=== PATIENT | female | born 1970 | race Caucasian/White ===

== ENCOUNTER 2017-10-12 13:52 | Emergency (ER) | payer OTHER ==
[~2017-10-12] VITALS: Ht 160 cm; Wt 56.7 kg
[~2017-10-12 13:52] MED LIST: ACET325; ALBU90OI INH; CIPR500 PO; CLIN300 PO; CYCL10 PO; Cleocin HCl300 MG PO; DOXY100 PO; ERYT500 PO; Esgic Tablet1 EACH PO; FAMO20 PO; HERBAL MEDS; HYDACE5 PO; IBUP200; LORA1 PO; NAPR500 PO; Norco 10-325 T1 EACH PO; Norco 5-325 Ta1 EACH PO; OMEP20ER PO; OXYACE5T PO; PHENA100 PO; PROC10 PO; PROCODE120 PO; PROM25 PO; Prednisone20 MG PO; RXHYDACE PO; RXPHEN200 PO; RXSULTRIDS PO; SULTRIDS PO; TRAM50 PO; Zithromax250 MG PO; [UNRECOGNIZED DRUG - OTHER]
[2017-10-12] MEDS ORDERED: Norco 5-325 Ta1 EACH PO (15:45)
[2017-10-12] MEDS ORDERED: ALBU90OI INH (16:13)
== END 2017-10-12 16:18 | disposition home or self-care (01) ==
LOC: ER 13:52
DX: S20.211A Contusion of right front wall of thorax, initial encounter (principal); J44.9 Chronic obstructive pulmonary disease, unspecified; F41.9 Anxiety disorder, unspecified; F17.210 Nicotine dependence, cigarettes, uncomplicated; Z88.0 Allergy status to penicillin; W17.81XA Fall down embankment (hill), initial encounter; Y92.828 Other wilderness area as the place of occurrence of the external cause
CPT/HCPCS: 71100; 99283-25

== ENCOUNTER 2019-09-18 15:49 | Emergency (ER) | payer OTHER ==
[~2019-09-18] VITALS: Ht 160 cm; Wt 61.2 kg
== END 2019-09-18 16:23 | disposition home or self-care (01) ==
LOC: ER 15:49
DX: S91.135A Puncture wound without foreign body of left lesser toe(s) without damage to nail, initial encounter (principal)
CPT/HCPCS: 99282

== ENCOUNTER 2020-05-14 22:50 | Emergency (ER) | payer OTHER ==
[~2020-05-14] VITALS: Ht 160 cm; Wt 63.5 kg
== END 2020-05-14 23:47 | disposition home or self-care (01) ==
LOC: ER 22:50
DX: T76.21XA Adult sexual abuse, suspected, initial encounter (principal); J44.9 Chronic obstructive pulmonary disease, unspecified; F17.210 Nicotine dependence, cigarettes, uncomplicated; Z88.0 Allergy status to penicillin
CPT/HCPCS: 99284

== ENCOUNTER 2020-05-15 06:19 | Emergency (ER) | payer OTHER ==
[~2020-05-15] VITALS: Ht 160 cm; Wt 63.5 kg
== END 2020-05-15 11:00 | disposition home or self-care (01) ==
LOC: ER 06:19
DX: Z04.41 Encounter for examination and observation following alleged adult rape (principal); F10.10 Alcohol abuse, uncomplicated; F44.9 Dissociative and conversion disorder, unspecified; F17.210 Nicotine dependence, cigarettes, uncomplicated; Z88.0 Allergy status to penicillin
CPT/HCPCS: 99284

== ENCOUNTER → 2021-02-04 | Outpatient (CLI) | payer OTHER ==
[2021-02-07 05:10] LABS: CHLAMYDIA BY NAA Negative (Negative); GONOCOCCUS BY NAA Negative (Negative); TRICH VAG BY NAA Negative (Negative)
== END | disposition home or self-care (01) ==
LOC: LAB 12:11 → LAB SHORT 12:11
PROVIDERS: Physician Assistant Surgical
DX: N76.0 Acute vaginitis (principal)
CPT/HCPCS: 87070; 87205; 87491; 87591; 87661

== ENCOUNTER 2023-01-11 15:46 | Emergency (ER) | payer OTHER ==
[~2023-01-11] VITALS: Ht 160 cm; Wt 65.8 kg
[2023-01-11 15:55] VITALS: BP 133/87
== END 2023-01-11 16:44 | disposition home or self-care (01) ==
LOC: ER 15:46
DX: M65.4 Radial styloid tenosynovitis [de Quervain] (principal); Z88.0 Allergy status to penicillin; J44.9 Chronic obstructive pulmonary disease, unspecified; G47.30 Sleep apnea, unspecified; F17.210 Nicotine dependence, cigarettes, uncomplicated
CPT/HCPCS: 29125; 73130; 99283-25